=== PATIENT | female | born 1955 | race Asian ===

== ENCOUNTER → 2020-11-05 | Outpatient (CLI) | payer MEDICARE | END | disposition home or self-care (01) | LOC: CFH 10:33 | PROVIDERS: ATTEND Family Medicine | DX: Z12.31 Encounter for screening mammogram for malignant neoplasm of breast (principal); M85.88 Other specified disorders of bone density and structure, other site; M85.9 Disorder of bone density and structure, unspecified | CPT/HCPCS: 77063; 77067; 77080 ==